=== PATIENT | male | born 1955 | race Two or more races ===

== ENCOUNTER 2016-12-20 08:56 | Emergency (ER) | payer OTHER ==
[2016-12-20 09:02] VITALS: BP 158/100; PULSE 107; TEMP 98; BMI 24.3
[2016-12-20 09:32] LABS: URINE APPEARANCE CLEAR; URINE BILIRUBIN NEGATIVE (NEGATIVE); URINE BLOOD NEGATIVE (NEGATIVE); URINE COLOR LTYELLOW; URINE GLUCOSE (UA) NEGATIVE (NEGATIVE); URINE KETONE NEGATIVE (NEGATIVE); URINE LEUK ESTERASE NEGATIVE (NEGATIVE); URINE NITRITE NEGATIVE (NEGATIVE); URINE PROTEIN NEGATIVE (NEGATIVE); URINE UROBILINOGEN NEGATIVE E.U./dl (0.2-1.0)
--- NOTE | 2016-12-20 10:20 | PDOC ---
History of Present Illness - General Chief Complaint: Urinary Problem Stated Complaint: URINARY PROBLEM Time Seen by Provider: 12/20/16 09:35 - History of Present Illness Initial Comments: 12/20/16 10:17 Mr. Wolfe is a 61 y/o male with a history of HTN, HLD, cardiac bypass with stenting presents [facility] today complaining of "white discharge" in his urine. He states that he noticed his urine change yesterday and that "it almost looks like sperm". He denies fevers, chills, frequency, nocturia, hematuria, dysruia. He is sexually active and monagomous with his . He wanted to see his PCP but states they did not have an appointment for a week. Pt. states that he is shy when mentioning physical exam and would prefer a male doctor. Past History - Past Medical History Allergies/Adverse Reactions: Allergies Allergy/AdvReac Type Severity Reaction Status Date / Time No Known Allergies Allergy Verified 12/20/16 09:03 Home Medications: Ambulatory Orders NK [No Known Home Medication] 12/20/16 HTN: Yes Hypercholesterolemia: Yes - Surgical History Cardiac Surgery: Yes (OPEN HEART SX BYPASS) - Psycho/Social/Smoking Cessation Hx Suicidal Ideation: No Smoking History: Never smoked Information on smoking cessation initiated: No Hx Alcohol Use: No Drug/Substance Use Hx: No Substance Use Type: None *Physical Exam - Vital Signs Last Vital Signs Temp Pulse Resp BP Pulse Ox 98 F 107 H 18 158/100 99 12/20/16 08:59 12/20/16 08:59 12/20/16 08:59 12/20/16 08:59 12/20/16 08:59 - Physical Exam Comments: 12/20/16 10:20 ED Treatment Course - ADDITIONAL ORDERS Additional order review: Laboratory Results 12/20/16 09:20 Urine Color Ltyellow Urine Appearance Clear Urine pH 6.0 Ur Specific [place] 1.010 Urine Protein Negative Urine Glucose (UA) Negative Urine Ketones Negative Urine Blood Negative Urine Nitrite Negative Urine Bilirubin Negative Urine Urobilinogen Negative Ur Leukocyte Esterase Negative Medical Decision Making - Medical Decision Making 12/20/16 10:35 Mr. Wolfe is a 61 y/o male with a chief complaint of white discharge in his urine. At this time his UA shows no sign of UTI, or blood in the urine. Will discharge home at this time with a referral to a urologist. *DC/Admit/Observation/Transfer Diagnosis at time of Disposition: Dysuria - Discharge Dispostion Disposition: HOME Condition at time of disposition: Stable Admit: No - Referrals Referrals: Ravi Hobbs MD., MD [Staff Physician] - - Patient Instructions Additional Instructions: Your exam today showed no evidence of a urinary infection and your exam was normal. There is a referral for a urologist Dr. Hobbs. Call the office and schedule an appointment. Follow up with your PCP in one week. Return to the emergency room if you develop fevers, chills, pain on urination or are unable to urinate.
== END 2016-12-20 10:51 | disposition home or self-care (01) ==
LOC: JERFT 08:56
DX: R30.0 Dysuria (principal); I25.10 Atherosclerotic heart disease of native coronary artery without angina pectoris; I10 Essential (primary) hypertension; Z95.1 Presence of aortocoronary bypass graft; Z95.5 Presence of coronary angioplasty implant and graft; E78.00 Pure hypercholesterolemia, unspecified
CPT/HCPCS: 36415; 81003; 87086; 87491; 87591; 99281-25